=== PATIENT | male | born 1980 | race Caucasian/White ===

== ENCOUNTER 2017-03-21 18:50 | Emergency (ER) | payer OTHER ==
[~2017-03-21] VITALS: Ht 190.5 cm; Wt 75.0 kg
[~2017-03-21 18:50] MED LIST: CYCL5TAB PO; GABA-826 PO; HYDR-3240 PO; METH500T7 PO; ONDA4TAB7 PO; TRAM50TA2 PO
[2017-03-21] MEDS ORDERED: PLEASE ENTER ALLERGIES MC SCH (19:30)
[2017-03-21] MEDS ORDERED: DIAZEPAM 5 MG TABLET PO ONE (19:30)
[2017-03-21] MEDS ORDERED: HYDROmorphone 1 MG/ML, 1ML IM ONE (19:30)
[2017-03-21] MEDS ORDERED: KETOROLAC 30 MG/1 ML IM ONE (19:30)
[2017-03-21] MEDS ORDERED: KETOROLAC 30 MG/1 ML ONE (19:32)
[2017-03-21] MEDS ORDERED: HYDROmorphone 2 MG/ML, 1ML ONE (19:32)
[2017-03-21] MEDS ORDERED: DIAZEPAM 5 MG TABLET ONE (19:32)
[2017-03-21 20:54] VITALS: BP 119/89
== END 2017-03-21 20:56 | disposition home or self-care (01) ==
LOC: ED 20:55
DX: S39.012A Strain of muscle, fascia and tendon of lower back, initial encounter (principal); S29.012A Strain of muscle and tendon of back wall of thorax, initial encounter; W01.0XXA Fall on same level from slipping, tripping and stumbling without subsequent striking against object, initial encounter; Y93.G1 Activity, food preparation and clean up; Y92.098 Other place in other non-institutional residence as the place of occurrence of the external cause; Y99.8 Other external cause status
CPT/HCPCS: 72072; 72110; 96372; 99284; J1170; J1885